=== PATIENT | female | born 1990 | race American Indian/Alaskan Native ===

== ENCOUNTER 2019-12-09 19:28 | Emergency (ER) | payer OTHER, MEDICAID ==
[2019-12-09 19:57] VITALS: BP 137/79
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
== END 2019-12-09 20:30 | disposition left against medical advice (07) ==
LOC: ED 19:28
DX: M79.18 Myalgia, other site (principal); J45.909 Unspecified asthma, uncomplicated; F17.200 Nicotine dependence, unspecified, uncomplicated; V49.49XA Driver injured in collision with other motor vehicles in traffic accident, initial encounter; Y93.89 Activity, other specified; Y92.89 Other specified places as the place of occurrence of the external cause; Y99.8 Other external cause status
CPT/HCPCS: 99281